=== PATIENT | female | born 1940 | race Caucasian/White ===

== ENCOUNTER 2016-09-11 23:53 | Emergency (ER) | payer MEDICARE, BC ==
[~2016-09-11] VITALS: Ht 149.9 cm; Wt 49.0 kg
[~2016-09-11 23:53] MED LIST: ATOR10TA; LEVO25TA2; SOLI5TAB; TROS20TA PO; VENL25TA4
--- NOTE | 2016-09-12 00:10 | NUR ---
to bed 3 ambulatory states "my veins in both arms are bulging". pt denies pain or discomfort at this time. pt aaox4 no acute distress noted, resp even and unlabored. pending er md pathak.
--- NOTE | 2016-09-12 00:36 | NUR ---
pt at bedside.
--- NOTE | 2016-09-12 00:59 | NUR ---
concrete technician at bedside.
--- NOTE | 2016-09-12 01:16 | NUR ---
er abby mclaughlin at bedside talking to pt regarding venous duplex result.
--- NOTE | 2016-09-12 01:25 | NUR ---
started sl 18g to L ac, blood drawn and sent to lab.
[2016-09-12 01:36] LABS: BASOPHILS % (AUTO) 0.5 % (0.0-2.0); EOSINOPHILS # (AUTO) 0.2 /CMM (0.0-0.7); EOSINOPHILS % (AUTO) 4.7 % (0.0-6.0); HEMATOCRIT 41 % (33-45); HEMOGLOBIN 13.8 g/dL (11.5-14.8); LYMPHOCYTES % (AUTO) 25.3 % (20.0-44.0); MEAN CORPUSCULAR HEMOGLOBIN 31 PG (26.0-33.0); MEAN CORPUSCULAR HGB CONC 34 g/dl (31.0-36.0); MEAN CORPUSCULAR VOLUME 92 fL (82-100); MONOCYTES # (AUTO) 0.5 /CMM (0.1-1.30); MONOCYTES % (AUTO) 12.1 % (2.0-12.0); NEUTROPHILS # (AUTO) 2.3 /CMM (1.8-8.9); NEUTROPHILS % (AUTO) 57.4 % (43.0-81.0); PLATELET COUNT (AUTO) 221 /CMM (150-450); RDW COEFFICIENT OF VARIATION 13.8 (11.5-15.0); RED BLOOD CELL COUNT(AUTO) 4.43 MIL/uL (4.0-5.2); WHITE BLOOD COUNT (AUTO) 4.1 K/uL (4.3-11.0)
[2016-09-12 01:52] LABS: CALCIUM, SERUM 8.8 mg/dL (8.5-10.1); CARBON DIOXIDE 26 mmol/L (21-32); CHLORIDE 107 mmol/L (98-107); CREATININE 0.7 mg/dL (0.6-1.3); GLUCOSE 66 mg/dL (74-106); POTASSIUM 3.3 mmol/L (3.5-5.1); SODIUM SERUM 143 mmol/L (136-145); UREA NITROGEN, BLOOD 20 mg/dL (7-18)
[2016-09-12 01:56] LABS: INR 1.07 (0.87-1.13); PROTHROMBIN TIME 11.5 SECS (9.5-12.7)
[2016-09-12 01:57] LABS: ALANINE AMINOTRANSFERASE 66 U/L (12-78); ALBUMIN 4.1 g/dL (3.4-5.0); ALKALINE PHOSPHATASE 48 U/L (46-116); ASPARTATE AMINOTRANSFERASE 47 U/L (15-37); BILIRUBIN,TOTAL 0.5 mg/dL (0.2-1.0); TOTAL PROTEIN, SERUM 7.1 g/dL (6.4-8.2)
[2016-09-12 01:59] LABS: TROPONIN I < 0.017 ng/mL (0.00-0.056)
--- NOTE | 2016-09-12 01:59 | NUR ---
pt transported to radiology for ct pulmonary angiogram, cta brain, and cta carotid.
[2016-09-12] MEDS ORDERED: IV NS 0.9% 250 ML IV ONE (02:00)
[2016-09-12] MEDS ORDERED: CT SWABBABLE VALVE TRANS SET 1 EA INFUS.SET MC ONE (02:00)
[2016-09-12] MEDS ORDERED: IOHEXOL-350 100 ML VIAL IV ONE (02:00)
[2016-09-12 02:02] LABS: PARTIAL THROMBOPLASTIN TIME < 20 SEC (23-34)
--- NOTE | 2016-09-12 02:23 | NUR ---
pt back from radiology. pending ct results.
--- NOTE | 2016-09-12 03:26 | NUR ---
ct result received. er aware
--- NOTE | 2016-09-12 03:27 | NUR ---
er md at bedside talking to pt regaridng ct, lab results and discharge. pt remains pain free at this time.
--- NOTE | 2016-09-12 03:51 | NUR ---
IV removed. Catheter intact and site benign. Pressure and 4x4 applied to site. No bleeding noted. Patient discharged to home in stable condition. Written and verbal after care instructions given. Patient verbalizes understanding of instruction. ambulatory with a steady gait noted. pt aaox4 no acute distress noted, resp even and unlabored. pt at bedside to take pt home.
[2016-09-12 03:53] VITALS: BP 118/63
== END 2016-09-12 03:54 | disposition home or self-care (01) ==
LOC: ER 23:54
DX: I87.8 Other specified disorders of veins (principal); F32.9 Major depressive disorder, single episode, unspecified; E03.9 Hypothyroidism, unspecified; C55 Malignant neoplasm of uterus, part unspecified; Z90.710 Acquired absence of both cervix and uterus
CPT/HCPCS: 36415; 70496; 70498; 71275; 80053; 84484; 85025; 85730; 93005; 93971; 99285; A4606; J7050; Q9967; Z7610

== ENCOUNTER 2019-05-01 20:38 | Emergency (ER) | payer BC, MEDICARE ==
[~2019-05-01] VITALS: Ht 149.9 cm; Wt 49.0 kg
[~2019-05-01 20:38] MED LIST changes: -SOLI5TAB; +SOLI5TAB2
[2019-05-01 20:44] VITALS: BP 114/69
--- NOTE | 2019-05-01 20:45 | NUR ---
PT CAME IN FOR R HAND PAIN. CAME FROM ORTHOPEDIC DR LAST THURSDAY. PT AAOX4, VSS, NO ACUTE DISTRESS NOTED. AWAITING FOR EVAL
[2019-05-01] MEDS ORDERED: HYDROCODONE/APAP 5/325MG 1 EACH TABLET PO ONE (22:30)
[2019-05-01] MEDS ORDERED: HYDROCODONE/APAP 5/325MG 1 EACH TABLET ONE (22:30)
--- NOTE | 2019-05-01 22:35 | NUR ---
Patient discharged to home in stable condition. Written and verbal after care instructions given. Patient verbalizes understanding of instruction.
== END 2019-05-01 22:35 | disposition home or self-care (01) ==
LOC: ER 20:40
DX: S62.101D Fracture of unspecified carpal bone, right wrist, subsequent encounter for fracture with routine healing (principal); E03.9 Hypothyroidism, unspecified; Z76.0 Encounter for issue of repeat prescription; Z85.42 Personal history of malignant neoplasm of other parts of uterus; Z90.710 Acquired absence of both cervix and uterus; Z98.890 Other specified postprocedural states; Z79.899 Other long term (current) drug therapy; X58.XXXD Exposure to other specified factors, subsequent encounter

== ENCOUNTER 2019-09-09 17:00 | Emergency (ER) | payer BC ==
[~2019-09-09] VITALS: Ht 180.3 cm; Wt 49.0 kg
--- NOTE | 2019-09-09 17:15 | NUR ---
DANTE W[place] AT BEDSIDE FOR EVAL.
[2019-09-09 17:16] VITALS: BP 179/74
[2019-09-09] MEDS ORDERED: TRAMADOL HCL 50 MG TABLET ONE (17:21)
[2019-09-09] MEDS: TRAMADOL HCL 50 MG TABLET PO ONE (17:24)
--- NOTE | 2019-09-09 17:24 | NUR ---
ICE PACK APPLIED.
--- NOTE | 2019-09-09 17:27 | NUR ---
BELL RINGER AT BEDSIDE FOR XRAY.
--- NOTE | 2019-09-09 18:29 | NUR ---
TECH AT BEDSIDE FOR SUGAR TONG SPLINT.
[2019-09-09] MEDS ORDERED: ACETAMINOPHEN 325 MG TABLET ONE (18:46)
--- NOTE | 2019-09-09 18:54 | NUR ---
Patient discharged to home in stable condition. Written and verbal after care instructions given. Patient verbalizes understanding of instruction.
[2019-09-09] MEDS ORDERED: ACETAMINOPHEN 325 MG TABLET PO ONE (19:00)
== END 2019-09-09 18:55 | disposition home or self-care (01) ==
LOC: ER 17:01
DX: S52.591A Other fractures of lower end of right radius, initial encounter for closed fracture (principal); S52.691A Other fracture of lower end of right ulna, initial encounter for closed fracture; F32.9 Major depressive disorder, single episode, unspecified; E03.9 Hypothyroidism, unspecified; E78.5 Hyperlipidemia, unspecified; Z98.890 Other specified postprocedural states; Z79.899 Other long term (current) drug therapy; W18.39XA Other fall on same level, initial encounter; Y93.01 Activity, walking, marching and hiking; Y92.89 Other specified places as the place of occurrence of the external cause; Y99.8 Other external cause status
CPT/HCPCS: 73100-TC